=== PATIENT | male | born 1990 | race Hispanic/Latino ===

== ENCOUNTER 2025-07-05 03:24 | Emergency (ER) | payer OTHER ==
[~2025-07-05] VITALS: Ht 177.8 cm; Wt 68.0 kg
[2025-07-05 03:24] VITALS: TEMP 98.4
[2025-07-05 05:42] VITALS: PULSE 98; RESP 20
[2025-07-05 05:43] VITALS: BP 97/67; PULSE 93; RESP 20; O2SAT 98
== END 2025-07-05 05:40 | disposition home or self-care (01) ==
LOC: ER 03:53
DX: M79.602 Pain in left arm (principal); M62.838 Other muscle spasm; K21.9 Gastro-esophageal reflux disease without esophagitis; R94.31 Abnormal electrocardiogram [ECG] [EKG]; F17.210 Nicotine dependence, cigarettes, uncomplicated
CPT/HCPCS: 71046; 93005; 99283